=== PATIENT | female | born 1935 | race Caucasian/White ===

== ENCOUNTER → 2016-12-11 | Outpatient (CLI) | payer MEDICARE, OTHER | END | disposition home or self-care (01) | LOC: GMAJ 10:13 | PROVIDERS: ATTEND Family Medicine | DX: E03.9 Hypothyroidism, unspecified (principal) ==

== ENCOUNTER → 2017-07-11 | Outpatient (CLI) | payer MEDICARE, OTHER | LOC: GMAJ 10:33 | PROVIDERS: ATTEND Family Medicine | DX: E03.9 Hypothyroidism, unspecified (principal) ==

== ENCOUNTER 2017-08-29 05:38 | Day surgery (SDC) | payer MEDICARE, OTHER ==
[2017-08-29] MEDS ORDERED: LACTATED RINGERS 1,000 ML ONE (06:36)
[2017-08-29] MEDS ORDERED: PROPOFOL 200 MG/20 ML VIAL IV ONE (07:27)
[2017-08-29] MEDS ORDERED: LIDOCAINE 1% 10 ML VIAL INJ ONE (07:27)
--- NOTE | 2017-08-29 09:56 | OP ---
DATE OF PROCEDURE: 08/29/17 PREOPERATIVE DIAGNOSIS: 1. Dysphagia. 2. Gastroesophageal reflux disease. POSTOPERATIVE DIAGNOSIS: 1. Esophageal Schatzki's ring. 2. Erosive gastritis. PROCEDURE: 1. Esophagogastroduodenoscopy. SURGEON: Kade Hernandez MD ANESTHESIA: Monitored anesthesia care. ESTIMATED BLOOD LOSS: Less than 5 mL. COMPLICATIONS: No immediate complications. PROCEDURE: The patient was placed in the left lateral decubitus position. After monitored anesthesia care was achieved, the adult upper endoscope was inserted through the oropharynx and into the proximal esophagus under direct visualization. The endoscope was then advanced to the second portion of the duodenum without difficulty. The endoscope was then progressively withdrawn and the duodenum, stomach and esophagus lumen were evaluated. Retroflexion was performed in the stomach. A Savary guidewire was then passed through the upper endoscope into the stomach under direct visualization. The endoscope was progressively withdrawn over the guidewire, leaving the guidewire in place. Savary dilation of the distal esophagus was performed with an 18-mm Savary dilator over the existing wire. The dilator and wire were then withdrawn. A second-look endoscopy was not performed. The procedure was then terminated. The patient tolerated the procedure well with no immediate complications. FINDINGS: 1. Esophagus - The gastroesophageal junction was located at 36 cm. A subtle Schatzki's ring was located at 35 cm from the incisors. The endoscope passed through the ring with no resistance. Savary dilation was performed to 18 mm as above. 2. Stomach - Erosive gastritis characterized by linear erosions and surrounding erythema in a patchy distribution located in the antrum and distal body. Random gastric biopsies were taken to rule out H. pylori. 3. Duodenum - The duodenum appeared unremarkable. IMPRESSION: 1. Distal esophageal Schatzki's ring status post Savary dilation. 2. Erosive gastritis status post biopsy. RECOMMENDATIONS: 1. Await pathology results. 2. Continue Protonix twice a day. 3. Avoid NSAIDs. 4. Followup in GI clinic with David in 4 to 6 weeks. #[id number] [facility]
[2017-08-29 10:52] VITALS: TEMP 97
[2017-08-29 10:53] VITALS: BP 186/79; O2SAT 100
== END 2017-08-29 10:00 | disposition home or self-care (01) ==
LOC: AMB 05:38
PROVIDERS: ATTEND Internal Medicine Gastroenterology
DX: R13.10 Dysphagia, unspecified (principal); K21.9 Gastro-esophageal reflux disease without esophagitis; K29.50 Unspecified chronic gastritis without bleeding; K22.2 Esophageal obstruction; I10 Essential (primary) hypertension; R73.03 Prediabetes; Z79.01 Long term (current) use of anticoagulants; Z79.84 Long term (current) use of oral hypoglycemic drugs; Z79.899 Other long term (current) drug therapy
CPT/HCPCS: 00731; 36416; 43239; 43248; 82948; 88305; 88342; J3490; J7120

== ENCOUNTER 2018-01-21 05:29 | Day surgery (SDC) | payer MEDICARE, OTHER ==
[2018-01-21] MEDS ORDERED: PROPARACAINE 0.5% OPHTH SOL 15 ML BTTL ONE (05:58)
[2018-01-21] MEDS ORDERED: TROP 1%/CYCLOPEN 1%/PHENYL 2% DROPS ONE (05:58)
[2018-01-21] MEDS ORDERED: MIDAZOLAM INJ 2 MG/2 ML VIAL ONE ×2 (07:04→07:21)
[2018-01-21] MEDS ORDERED: LIDOCAINE 1% MPF 5 ML VIAL INJ ONE (07:22)
[2018-01-21] MEDS ORDERED: BRIMONIDINE 0.2% OPHTH DROPS LEFT_EYE ONE (07:34)
[2018-01-21] MEDS ORDERED: TOBRAMYCIN SULF 0.3 % OPHT SOL 1 DROP LEFT_EYE ONE (07:34)
[2018-01-21] MEDS ORDERED: DEXAMETHASONE 0.1% OPHTH SOL 1 DROP LEFT_EYE ONE (07:34)
== END 2018-01-21 08:18 | disposition home or self-care (01) ==
LOC: AMB 05:29
PROVIDERS: ATTEND Ophthalmology
DX: H25.12 Age-related nuclear cataract, left eye (principal); I10 Essential (primary) hypertension; E11.36 Type 2 diabetes mellitus with diabetic cataract; K21.9 Gastro-esophageal reflux disease without esophagitis; Z79.84 Long term (current) use of oral hypoglycemic drugs; Z79.899 Other long term (current) drug therapy
CPT/HCPCS: 00142; 36416; 66984; 82948; J2250

== ENCOUNTER → 2018-02-06 | Outpatient (CLI) | payer MEDICARE, OTHER | LOC: GMAJ 10:50 | PROVIDERS: ATTEND Family Medicine | DX: E03.9 Hypothyroidism, unspecified (principal) ==

== ENCOUNTER → 2019-02-17 | Outpatient (CLI) | payer MEDICARE, OTHER | LOC: LAB.O 13:47 | PROVIDERS: ATTEND Orthopaedic Surgery | DX: Z01.818 Encounter for other preprocedural examination (principal) ==

== ENCOUNTER 2019-03-04 05:33 | Day surgery (SDC) | payer MEDICARE, OTHER ==
--- NOTE | 2019-03-03 09:17 | HP ---
CHIEF COMPLAINT: Right hand pain and numbness. HISTORY OF PRESENT ILLNESS: Hattie is an 83-year-old female with a history of numbness in the hand that has been going on for at least a year. She has also had pain in the wrist and hand. She has had conservative measures which included bracing and anti-inflammatories. Unfortunately, her pain continues to be very high at a 7 to 8 in intensity. She has had no significant alleviating factors. There was no trauma related to the onset of this. It affects her daily life and she is having difficulty sleeping because of it. Because of the failure of any conservative measures, we have discussed the risks, benefits and alternatives to operative therapy and she has requested that we proceed with carpal tunnel release. PAST SURGICAL HISTORY: 1. Lumbar surgery approximately 50 years ago. MEDICATIONS: 1. Metformin. 2. Hydrochlorothiazide. 3. Simvastatin. 4. Levothyroxine. 5. Alprazolam. 6. Zolpidem. 7. Trazodone. 8. Pantoprazole. PAIN CONTRACT: None. ALLERGIES: NO KNOWN DRUG ALLERGIES. CODE STATUS: Full code. IMMUNIZATIONS: Up to date. SOCIAL HISTORY: The patient does not drink, smoke or use any illicit drugs. FAMILY HISTORY: None pertinent to today's complaint. REVIEW OF SYSTEMS: Negative except as indicated in the History of Present Illness. HEENT: The patient reports no symptoms. RESPIRATORY: The patient reports no symptoms. CARDIOVASCULAR: The patient reports no symptoms. GASTROINTESTINAL: The patient reports no symptoms GENITOURINARY: The patient reports no symptoms. MUSCULOSKELETAL: Negative except as noted in History of Present Illness. SKIN: The patient reports no symptoms. NEUROLOGIC: The patient reports no symptoms. PHYSICAL EXAMINATION: VITAL SIGNS: Blood pressure 160/94. Pulse 101. Height 5'2". Weight 146 pounds. MENTAL STATUS: The patient is awake, alert, and is able to give a good history and participate in the physical. The patient is oriented to person, place and time. SKIN: Normal tone and turgor. HEENT: Normocephalic, atraumatic. Pupils equal, round and reactive. Mucosal membranes are moist. NECK: Normal range of motion. No thyromegaly, no lymphadenopathy. CHEST: Normal respiratory excursion. CARDIAC: Regular rate and rhythm. No murmurs, rubs or gallops. MUSCULOSKELETAL: The bilateral lower extremities show full active range of motion without pain. She has no varus or valgus laxity in the knees. She has no deformity or malalignment. She has a negative anterior and negative posterior drawer. She has 5/5 strength. She has normal gait. She has intact skin. She has full range of motion in the ankle and digits. The left upper extremity shows deformities of the digits secondary to osteoarthritis. She has near full extension and full flexion of all digits. She has some ulnar deviation at the DIP and PIP joints. They are warm and well perfused. She has positive carpal compression test. She has full range of motion in the wrist, elbow and shoulder. She has no crepitus with range of motion. The right upper extremity shows some difficulty with flexion of the index finger with flexion of the PIP to about 90 and the DIP to about 70. She has ulnar deviation of the digits 2 through 5. She has swelling at the DIP and PIP. She has positive carpal compression test. She has positive Tinel's. She has advanced thenar atrophy. She has no significant hypothenar atrophy. The hand is warm and well perfused. Skin is intact. She has no laxity. ASSESSMENT: 1. Carpal tunnel syndrome. 2. Rheumatoid arthritis. PLAN: The plan at this point is for carpal tunnel release. We have discussed the risks, benefits, and alternatives to that and the patient has given informed consent. [facility][id number] [facility]
[2019-03-04] MEDS ORDERED: LACTATED RINGERS 1,000 ML ONE (07:35)
[2019-03-04] MEDS ORDERED: SODIUM CHL 0.9% 100ML MINI-BAG 100 ML IVPB ONE (07:35)
[2019-03-04] MEDS ORDERED: ceFAZolin SODIUM 1 GM VIAL ONE (07:35)
[2019-03-04] MEDS ORDERED: BUPIVACAINE 0.25% INJ 30 ML VIAL INJ ONE (08:37)
[2019-03-04] MEDS ORDERED: LIDOCAINE 1% 10 ML VIAL INJ ONE ×2 (08:38→10:00)
[2019-03-04] MEDS ORDERED: DEXAMETHASONE INJ 10 MG/ML VIAL IV ONE (10:00)
[2019-03-04] MEDS ORDERED: PROPOFOL 200 MG/20 ML VIAL IV ONE (10:00)
[2019-03-04] MEDS ORDERED: MIDAZOLAM INJ 2 MG/2 ML VIAL ONE (10:46)
[2019-03-04] MEDS ORDERED: KETAMINE HCL 100 MG/ML VIAL ONE (10:46)
[2019-03-04] MEDS ORDERED: fentaNYL CITRATE INJ 50 MCG/ML AMP ONE (10:47)
[2019-03-04] MEDS: ceFAZolin SODIUM 1 GM VIAL ONE ×2 (11:19→11:22)
[2019-03-04] MEDS: VANCOMYCIN HCL INJ 1,000 MG VIAL IVPB ONE ×2 (11:19→11:22)
[2019-03-04 12:32] VITALS: BP 165/78; TEMP 97.8; O2SAT 96
--- NOTE | 2019-03-05 11:35 | OP ---
DATE OF PROCEDURE: 03/04/19 PREOPERATIVE DIAGNOSIS: 1. Right carpal tunnel syndrome. POSTOPERATIVE DIAGNOSIS: 1. Right carpal tunnel syndrome. PROCEDURE: 1. Right carpal tunnel release. SURGEON: Mani Scott MD. PROCESSOR HELPER: Gordo Byrne CST, SA-C. ANESTHESIA: Local with sedation. COMPLICATIONS: None. FINDINGS: 1. Thenar atrophy. 2. Thickening of the transverse carpal ligament. 3. Narrowing of the median nerve across the carpal tunnel. INDICATION: Ms. Baker has a long history of symptoms and physical examination findings consistent with carpal tunnel syndrome. We discussed the duration of her symptoms and the findings of atrophy of the thenar eminence and possibility of recovery of some of her symptoms should she continue with nonoperative management. Because of the severity of her symptoms, she did request operative intervention. After discussing the risks, benefits and alternatives to that, the patient has given informed consent for carpal tunnel release. PROCEDURE: The patient was brought to the Operating Room and placed in the supine position. Sedation was administered and local anesthetic was injected into the operative area under sterile conditions. After the injection of anesthetic, the arm was sterilely prepped and draped. A longitudinal incision was made directly overlying the transverse carpal ligament and blunt dissection was carried down to the ligament. The transverse carpal ligament was sharply transected along its length and a [place] elevator was used to ensure complete release of the ligament. Once release had been confirmed, the wound was thoroughly irrigated and the wound was closed with Nylon suture. A sterile dressing was placed and the patient was taken to the Day Surgery Unit. POSTOPERATIVE PLAN: The patient has been encouraged to do range of motion of the digits and will followup with us in two days. [id number] [facility]
== END 2019-03-04 12:25 | disposition home or self-care (01) ==
LOC: AMB 05:33
PROVIDERS: ATTEND Orthopaedic Surgery
DX: G56.01 Carpal tunnel syndrome, right upper limb (principal); M06.9 Rheumatoid arthritis, unspecified; Z79.84 Long term (current) use of oral hypoglycemic drugs; Z79.899 Other long term (current) drug therapy
CPT/HCPCS: 01810; 36415; 36416; 64721; 80048; 80307; 82948; 85025; 93005; J0690; J1100; J2250; J3010; J3370; J3490; J7050; J7120

== ENCOUNTER → 2019-05-12 | Outpatient (CLI) | payer MEDICARE, OTHER ==
--- NOTE | 2019-05-12 15:46 | MRI ---
EXAM DESCRIPTION: Lumbar Spine w/o Contrast : Magnetic Resonance Imaging. CLINICAL HISTORY: SPONDYLOSIS WITH RADICULOPATHY LUMBAR REGION COMPARISON: None. TECHNIQUE: Multiplanar, multiple standard sequences, non contrast MRI, lumbar spine. FINDINGS: L5-S1: The disc is well visualized on axial T2 series 501, image 3. L5-S1: Minimal disc desiccation with no posterior bulge. Degenerative degeneration hypertrophy of the posterior flavum ligaments and bilateral facet joints (posterior elements). No canal stenosis. Moderate narrowing of the bilateral foramina. L4-L5: Disc desiccation and minimal disc space loss but more to the right of midline.. Inferior Schmorl's nodes in the midline. Trace anterolisthesis. Posterior broad-based disc bulge. Bilateral moderate degenerative hypertrophy of the posterior elements. AP canal diameter 9.5 mm. Disc spur complex encroaching on the right foramen with moderate to severe foraminal narrowing. Moderate left foraminal narrowing. Bilateral deformity of the L5 pars interarticulares with possible spondylolysis, more on the right. L3-L4: Disc desiccation and moderate to severe disc space loss in the midline and left more than right. Anterior bulging and endplate ridging. Annular fissure in the left posterior protruding disc segment which is also migrating inferiorly and causing left subarticular recess stenosis, also involving ascending left L4 nerve. Deformity and loss of joint space in the left facet, and thinning of the left pedicle. Possible prior partial discectomy. Minimal degenerative hypertrophy in the right ligaments and facet. Borderline left foraminal stenosis and mild narrowing right foramen. L2-L3: Disc desiccation and anterior bulging and minimal endplate ridging. Inferior L2 Schmorl's node. Tiny posterior bulge. Minimal hypertrophy of the posterior elements. AP canal diameter 10 mm. Disc also bulges into the right foramen. Moderate narrowing of the bilateral foramina more on the right. L1-L2: Disc desiccation with no disc space loss. Minimal hypertrophy of the posterior elements with no disc bulge. Minimal thickening of the posterior ligaments. Canal is patent. Mild narrowing of the right foramen. Circumscribed hyperintense T1 and T2 hemangioma L1 vertebral body. Conus terminates just above the disc space T12-L1: Normal signal in the disc and disc space preserved. Minimal thickening of the posterior ligaments. Canal is patent. Mild left foraminal narrowing. No significant scoliosis. Paravertebral soft tissues muscle atrophy.. Distal cord normal signal and caliber. Otherwise normal marrow signal in the remaining vertebral bodies and the posterior elements. Vertebral bodies are not compressed at any level. IMPRESSION: 1. Multiple levels of disc desiccation, disc bulging, hypertrophy of the posterior flavum ligaments and facet joints, and spondylosis. 2. Posterior L4-L5 disc bulge and degenerative hypertrophy of the posterior elements resulting in borderline mild central canal stenosis. Moderate to severe right foraminal narrowing from disc spur complex. Bilateral L5 pars interarticularis deformity, possible spondylolysis. Trace anterolisthesis. 3. Left side L3-L4 annular fissure in a protruding disc segment with inferior migration encroaching on the left subarticular recess and possibly the left L4 nerve. Deformity of the left pedicle and left facet joint due to prior surgery or previous facet joint inflammatory process. Correlate with clinical history. Borderline left foraminal stenosis. Correlate for left L3 radiculopathy. 4. Borderline mild central canal stenosis at L2-L3 with posterior bulge and posterior elements degenerative hypertrophy. Electronically signed by: Gordo Vazquez MD 05/12/2019 3:45 PM [facility]
== END ==
LOC: MRI 11:30
PROVIDERS: ATTEND Family Medicine
DX: M47.26 Other spondylosis with radiculopathy, lumbar region (principal); M51.36 Other intervertebral disc degeneration, lumbar region; M51.26 Other intervertebral disc displacement, lumbar region; M51.86 Other intervertebral disc disorders, lumbar region; M48.061 Spinal stenosis, lumbar region without neurogenic claudication; M43.16 Spondylolisthesis, lumbar region; M95.9 Acquired deformity of musculoskeletal system, unspecified; M25.78 Osteophyte, vertebrae; M24.28 Disorder of ligament, vertebrae; M81.0 Age-related osteoporosis without current pathological fracture

== ENCOUNTER → 2019-08-14 | Outpatient (CLI) | payer MEDICARE, OTHER | LOC: GMAJ 11:57 | PROVIDERS: ATTEND Family Medicine | DX: E03.9 Hypothyroidism, unspecified (principal); I10 Essential (primary) hypertension; E78.00 Pure hypercholesterolemia, unspecified; E11.9 Type 2 diabetes mellitus without complications ==